=== PATIENT | female | born 1985 | race African-American/Black ===

== ENCOUNTER 2021-06-27 10:16 | Emergency (ER) | payer OTHER ==
[~2021-06-27] VITALS: Ht 152.4 cm; Wt 54.4 kg
[2021-06-27 11:15] VITALS: BP 112/68; TEMP 99
== END 2021-06-27 11:15 | disposition home or self-care (01) ==
LOC: ED 10:16
DX: J06.9 Acute upper respiratory infection, unspecified (principal); R50.9 Fever, unspecified; J11.1 Influenza due to unidentified influenza virus with other respiratory manifestations; Z20.822 Contact with and (suspected) exposure to COVID-19
CPT/HCPCS: 87502; 87635; 87651; 99283; U0003